=== PATIENT | female | born 1985 | race Caucasian/White ===

== ENCOUNTER 2023-04-15 08:59 | Emergency (ER) | payer OTHER ==
[~2023-04-15] VITALS: Ht 175.3 cm; Wt 72.6 kg
== END 2023-04-15 12:19 | disposition home or self-care (01) ==
LOC: ER 08:59
DX: O26.891 Other specified pregnancy related conditions, first trimester (principal); R10.2 Pelvic and perineal pain; N83.291 Other ovarian cyst, right side

== ENCOUNTER 2023-04-20 19:26 | Emergency (ER) | payer OTHER ==
[~2023-04-20] VITALS: Ht 175.3 cm; Wt 72.6 kg
== END 2023-04-20 23:41 | disposition home or self-care (01) ==
LOC: ER 19:26
DX: O20.8 Other hemorrhage in early pregnancy (principal); Z3A.01 Less than 8 weeks gestation of pregnancy

== ENCOUNTER 2023-04-22 07:01 | Emergency (ER) | payer OTHER ==
[~2023-04-22] VITALS: Ht 175.3 cm; Wt 72.6 kg
== END 2023-04-22 12:55 | disposition home or self-care (01) ==
LOC: ER 07:01
DX: O20.8 Other hemorrhage in early pregnancy (principal); Z3A.01 Less than 8 weeks gestation of pregnancy; O20.9 Hemorrhage in early pregnancy, unspecified; O26.899 Other specified pregnancy related conditions, unspecified trimester; R10.2 Pelvic and perineal pain